=== PATIENT | female | born 1990 | race American Indian/Alaskan Native ===

== ENCOUNTER 2016-12-01 09:18 | Emergency (ER) | payer OTHER ==
[2016-12-01 09:25] VITALS: BP 107/71; PULSE 85; TEMP 98.6
[2016-12-01 10:09] VITALS: RESP 18; O2SAT 98
--- NOTE | 2016-12-01 21:18 | C.PDOC ---
History Of Present Illness The patient, a 26 y/o female, presents to the ED for evaluation of fever, bilateral eye pain, cough that is mildly productive of phlegm and mandibular swelling which began around 2 days ago. Patient has not taken any medication for her symptoms. Patient reports nausea but otherwise denies nausea, diarrhea, constipation. Chief Complaint (Nursing): ENT Problem History Per: Patient History/Exam Limitations: None Onset/Duration Of Symptoms: Days (2) Current Symptoms Are (Timing): Still Present Past Medical History Reviewed: Historical Data, Nursing Documentation, Vital Signs Vital Signs: Last Vital Signs Temp 98.6 F 12/01/16 09:24 Pulse 85 12/01/16 10:09 Resp 18 12/01/16 10:09 BP 107/71 12/01/16 09:24 Pulse Ox 98 12/02/16 07:08 - Medical History PMH: No Chronic Diseases Surgical History: No Surg Hx Family History: States: Unknown Family Hx - Social History Hx Tobacco Use: No Hx Alcohol Use: No Hx Substance Use: No - Immunization History Hx Tetanus Toxoid Vaccination: No Hx Influenza Vaccination: No Hx Pneumococcal Vaccination: No Review Of Systems Except As Marked, All Systems Reviewed And Found Negative. Constitutional: Positive for: Fever Eyes: Positive for: Pain (bilaterally ) ENT: Positive for: Other (+mandibular pain ) Respiratory: Positive for: Cough, Sputum (mild ) Gastrointestinal: Positive for: Nausea. Negative for: Vomiting, Diarrhea, Constipation Physical Exam - Physical Exam Appears: Non-toxic, No Acute Distress Skin: Warm, Dry Head: Atraumatic, Swelling (mandibular region ) Eye(s): bilateral: Normal Inspection, PERRL, EOMI Ear(s): Bilateral: Normal Nose: Normal, No Discharge Oral Mucosa: Moist Throat: Normal, No Erythema, No Exudate Neck: Normal ROM, Supple Chest: Symmetrical, No Deformity, No Tenderness Cardiovascular: Rhythm Regular, No Murmur Respiratory: No Rales, Rhonchi (right upper lobe ), No Wheezing Gastrointestinal/Abdominal: Soft, No Tenderness, No Guarding, No Rebound Back: Normal Inspection, No Vertebral Tenderness, No Paraspinal Tenderness Extremity: Normal ROM, Capillary Refill (less than 2 seconds ) Neurological/Psych: Oriented x3, Normal Speech, Normal Cognition Gait: Steady ED Course And Treatment O2 Sat by Pulse Oximetry: 98 (on RA) Pulse Ox Interpretation: Normal Disposition - [facility] - Disposition: HOME/ ROUTINE Disposition Time: 10:00 Condition: GOOD Additional Instructions: Thank you for letting us take care of you today. Your provider was Dr. Sibley. You were treated for tonsillitis and a viral syndrome. The emergency medical care you received today was directed at your acute symptoms. If you were prescribed any medication, please fill it and take as directed. It may take several days for your symptoms to resolve. Return to the Emergency Department if your symptoms worsen, do not improve, or if you have any other problems. Please contact your doctor or call one of the physicians/clinics you have been referred to that are listed on the Patient Visit Information form that is included in your discharge packet. Bring any paperwork you were given at discharge with you along with any medications you are taking to your follow up visit. Our treatment cannot replace ongoing medical care by a primary care provider (PCP) outside of the emergency department. Thank you for allowing the [facility] team to be part of your care today. Follow up with your doctor in 3-4 days to be re-evaluated. Take both medications until they are completed. Prescriptions: Amoxicillin [Amoxil 500 mg Cap] 500 mg PO Q8 #21 cap Oseltamivir Phosphate [Tamiflu] 75 mg PO BID #10 capsule Instructions: Tonsillitis (ED), Viral Syndrome (ED) - Clinical Impression Clinical Impression: Acute bacterial tonsillitis - Scribe Statement The provider has reviewed the documentation as recorded by the Scribe (Shanice Tipton) Provider Attestation: All medical record entries made by the Scribe were at my direction and personally dictated by me. I have reviewed the chart and agree that the record accurately reflects my personal performance of the history, physical exam, medical decision making, and the department course for this patient. I have also personally directed, reviewed, and agree with the discharge instructions and disposition.
== END 2016-12-01 10:10 | disposition home or self-care (01) ==
LOC: C.ER 09:18
DX: J03.80 Acute tonsillitis due to other specified organisms (principal)